=== PATIENT | male | born 1975 | race Caucasian/White ===

== ENCOUNTER 2017-06-17 06:12 | Emergency (ER) | payer MEDICAID ==
[2017-06-17 06:25] VITALS: BP 124/87; PULSE 90; RESP 185; TEMP 97.9; O2SAT 99
--- NOTE | 2017-06-17 06:58 | EDPHY ---
H & P Stated Complaint: FOUND WALKING ON CAMPUS WITH BLOOD COMING FROM HEAD,ETOH Time Seen by Provider: 06/17/17 06:24 HPI/ROS: Chief Complaint: Head injury, medical clearance HPI: 41-year-old male was found intoxicated wondering on the [facility] campus. Patient was found carrying a gun. Is noted the patient had a large laceration on his scalp and blood on his hands. Patient was refusing to answer what happened. Patient is not answering if he has loss of consciousness. Patient is not able to account for events. Does admit to drinking alcohol heavily this morning. The answer to the remainder of questions is "fuck you". ROS: 10 point Review of Systems is negative except as noted in the HPI. PMH: Patient refusing to answer Social History: No smoking, positive alcohol, no recreational drug use Family History: non-contributory Physical Exam: Gen: Awake, Alert, Airway Intact HEENT: Head: He has a 2 cm laceration left parietal region which is not actively bleeding. There is no bony tenderness or step-offs. There is a moderate size hematoma Eyes: PERRLA, EOMI Nose: No epistaxis Mouth: Normal dentition, Airway patent Face: No deformity Neck: non-tender, no stepoff, Full ROM without pain Chest: non-tender, lungs CTA Heart: normal heart tones Abd: soft, non-tender, atraumatic Pelvis: non-tender, stable to AP and Lateral compression Back: atraumatic, no midline tenderness Ext: Is abrasions on his left thigh and left calf. Left hand he has a laceration on the dorsum just proximal to the 5th MCP joint which is a 1/2 cm and gaping. There is no deep tissue involvement. No tendon or ligament injury. Full range of motion without pain. Sensations intact in the radial, median and ulnar nerve distribution, full ROM Skin: no rash Neuro: CN II-XII intact, Strength 5/5 in all extremities, sensation intact in all extremities - Personal History Current Tetanus/Diphtheria Vaccine: Yes Current Tetanus Diphtheria and Acellular Pertussis (TDAP): Yes - Medical/Surgical History Hx Asthma: No Hx Chronic Respiratory Disease: No Hx Diabetes: No Hx Cardiac Disease: No Hx Renal Disease: No Hx Cirrhosis: No Hx Alcoholism: No Hx HIV/AIDS: No Hx Splenectomy or Spleen Trauma: No Other PMH: denies - Social History Smoking Status: Current every day smoker Constitutional: Initial Vital Signs Temperature (C) 36.6 C 06/17/17 06:15 Heart Rate 90 06/17/17 06:15 Respiratory Rate 185 H 06/17/17 06:15 Blood Pressure 124/87 H 06/17/17 06:15 O2 Sat (%) 99 06/17/17 06:15 O2 Delivery Mode Room Air O2 (L/minute) 0 Allergies/Adverse Reactions: No Known Allergies Allergy (Unverified 06/17/17 06:41) Home Medications: Medication Instructions Recorded NK [No Known Home Meds] 06/17/17 Medical Decision Making - Diagnostics Imaging Results: CT scan of the brain is negative for acute injury per Dr. Medrano. Imaging: Discussed imaging studies w/ faculty i on call medical assistant Radiologist Procedures: Procedure: Scalp Laceration repair. Verbal consent was obtained from the patient. The 2 cm laceration on the scalp was anesthetized in the usual fashion. The wound was irrigated, draped and explored to its base with a gloved finger. There were no deep structures involved. No tendon injury was identified. The wound was repaired with 3 sanjay. The wound repair was uncomplicated. The procedure was performed by myself. Procedure: Left hand Laceration repair. Verbal consent was obtained from the patient. The 1.5 cm laceration on the left hand was anesthetized in the usual fashion. The wound was irrigated, draped and explored to its base with a gloved finger. There were no deep structures involved. No tendon injury was identified. The wound was repaired with 3, 5-0 Ethilon simple interrupted sutures. The wound repair was uncomplicated. The procedure was performed by myself. ED Course/Re-evaluation: 41-year-old male found intoxicated on campus. He has lacerations to his scalp in his hand. CT scan of the brain is negative. Lacerations been repaired. He is otherwise no obvious injuries other than some abrasions on his legs. He is medically cleared for nursing home. Departure - Departure Disposition: Home, Routine, Self-Care Clinical Impression: Scalp laceration, Hand laceration, Alcohol intoxication, Abrasion Condition: Good Instructions: Care For Your Stitches (ED), Laceration (ED), Staple Care (ED) Additional Instructions: Sanjay and sutures need to be removed in 10 days. Return emergency depart for increasing pain, fevers, chills, nausea, vomiting, or any other concerns. Medically clear for nursing home. Referrals: NONE *PRIMARY CARE P,. [Primary Care Provider] - As per Instructions
== END 2017-06-17 07:30 | disposition home or self-care (01) ==
LOC: EDUNIT#
PROC: 0HQ0XZZ Repair Scalp Skin, External Approach (ICD-10-PCS; principal; 2017-06-17)
DX: S01.01XA Laceration without foreign body of scalp, initial encounter (principal); S61.412A Laceration without foreign body of left hand, initial encounter; F10.129 Alcohol abuse with intoxication, unspecified; S70.312A Abrasion, left thigh, initial encounter; S80.812A Abrasion, left lower leg, initial encounter; X58.XXXA Exposure to other specified factors, initial encounter